=== PATIENT | female | born 1955 | race Caucasian/White ===

== ENCOUNTER 2023-02-20 13:12 | Outpatient (CLI) | payer OTHER | END 2023-02-20 13:13 | disposition home or self-care (01) | LOC: CSHCT 13:12 | PROVIDERS: ATTEND Otolaryngology Plastic Surgery within the Head & Neck | DX: R09.81 Nasal congestion (principal) ==

== ENCOUNTER 2023-11-20 13:47 | Emergency (ER) | payer OTHER ==
[2023-11-20] MEDS ORDERED: Morphine 4 MG/ML VIAL ONE (14:35)
[2023-11-20] MEDS ORDERED: Diazepam 10 MG/2 ML SYRINGE ONE ×3 (14:35→17:28)
[2023-11-20 15:42] LABS: #Basophils 0.03 10x3/uL (0.0-0.2); #Eosinphils 0.09 10x3/uL (0.0-0.5); #Monocytes 0.89 10x3/uL (0.0-1.1); #Neutrophils 6.15 10x3/uL (1.5-8.4); %Basophils 0.3 % (0.0-2.0); %Lymphocytes 20.1 % (18.0-47.0); %Monocytes 9.9 % (0.0-10.0); %Neutrophils 68.1 % (40.0-75.0); Hematocrit 36.8 % (34.9-44.5); Mean Corpuscular HGB CONC 35.3 g/dL (32.0-36.0); Mean Corpuscular Hemoglobin 32.7 pg (27.0-33.0); Mean Corpuscular Volume 92.5 fL (81.6-98.3); Mean Platelet Volume 9.6 fL (7.4-10.4); Platelet Count 323 10x3/uL (150-450); RBC Distribution Width 12.3 % (11.5-14.5); Red Blood Cell (RBC) Count 3.98 10x6/uL (3.90-5.03)
[2023-11-20] MEDS ORDERED: HYDROcodone/Acetaminophen 5/325 mg Tablet ONE ×2 (16:38→17:28)
== END 2023-11-20 18:47 | disposition home or self-care (01) ==
LOC: CSHERS 13:47
DX: M43.26 Fusion of spine, lumbar region (principal); M48.061 Spinal stenosis, lumbar region without neurogenic claudication; M51.27 Other intervertebral disc displacement, lumbosacral region; F17.200 Nicotine dependence, unspecified, uncomplicated
CPT/HCPCS: 36415; 72148; 85025; 86140; 96374; 96375; 96376; J2272; J3360